=== PATIENT | male | born 1950 | race Caucasian/White ===

== ENCOUNTER 2016-03-17 10:40 | Inpatient (IN) | payer OTHER ==
[~2016-03-17] VITALS: Ht 172.7 cm; Wt 69.8 kg
[~2016-03-17 10:40] MED LIST: DILAUDID2 MG PO; LEXAPRO PO; METOPROLOL PO; PERCOCET 5/31 TABLET PO; PREVACID; TORADOL10 MG PO; ZANTAC150 MG PO; ZOFRAN4 MG PO
[2016-03-17 11:30] LABS: EOSINOPHIL (%) 0.2 % (0-5); HEMATOCRIT 43.6 % (38.0-50.0); IMMATURE GRANULOCYTE (%) 0.2 % (0.0-0.7); IMMATURE GRANULOCYTE COUNT 0.1 K/uL; MCH 31.3 PG (29.0-34.0); MCHC 35.3 G/DL (30.0-36.0); MCV 88.6 FL (86-99); MEAN PLAT.VOLUME 11.3 uM^3 (9.0-12.4); MONOCYTE (%) 4.9 % (3-12); MONOCYTE COUNT 0.3 K/uL (0-0.8); NEUTROPHIL (%) 78.4 % (45-76); NEUTROPHIL COUNT 4.6 K/uL (1.8-6.4); PLATELET COUNT 170 K/uL (156-360); RBC DIS.WIDTH-CV 12.9 % (11.8-14.6); RBC DIS.WIDTH-SD 40.9 % (39-53); RED BLOOD COUNT 4.92 M/uL (4.00-5.50); WHITE BLOOD COUNT 5.9 K/uL (4.1-10.2)
[2016-03-17 11:42] LABS: CHLORIDE 102 mEq/L (99-109); POTASSIUM 3.9 mEq/L (3.7-5.4); SODIUM 135 mEq/L (136-147)
[2016-03-17 11:44] LABS: GLUCOSE 147 mg/dL (70-99)
[2016-03-17 11:45] LABS: ANION GAP 10 MEQ/L (2-14)
[2016-03-17 11:46] LABS: TOTAL BILIRUBIN 0.5 mg/dL (0.0-1.0)
[2016-03-17 11:47] LABS: SERUM ETHYL ALCOHOL < 10 mg/dL
[2016-03-17 11:48] LABS: ALKALINE PHOSPHATASE 109 IU/L (3-129); GFR ESTIMATE (CALCULATED) > 59 mL/min/
[2016-03-17 11:49] LABS: UREA NITROGEN (BUN) 15 mg/dL (9-23)
[2016-03-17 12:49] LABS: COCAINE NEGATIVE (150 ng/mL); PHENCYCLIDINE NEGATIVE (25 ng/mL); THC CANNABINOIDS NEGATIVE (50 ng/mL)
[2016-03-17 12:50] LABS: AMPHETAMINE NEGATIVE (500 ng/mL); BARBITURATES NEGATIVE (200 ng/mL); BENZODIAZEPINES NEGATIVE (150 ng/mL); INTERNAL CONTROLS VALID? YES; METHADONE NEGATIVE (200 ng/mL); METHAMPHETAMINE NEGATIVE (500 ng/mL); OPIATES (MORPHINE) NEGATIVE (100 ng/mL); OXYCODONE NEGATIVE (100 ng/mL); PROPOXYPHENE NEGATIVE (300 ng/mL); TRICYCLIC ANTIDEPRESSANTS NEGATIVE (300 ng/mL)
[2016-03-17] MEDS ORDERED: ESCITALOPRAM OX10 MG PO (15:54)
[2016-03-17] MEDS ORDERED: AMLODIPINE BESYL5 MG PO (15:55)
[2016-03-17] MEDS ORDERED: B COMPLEX #11 EACH PO (15:56)
[2016-03-17] MEDS ORDERED: CYANOCOBALAM1000 MCG PO (15:57)
[2016-03-17] MEDS ORDERED: CALCIUM CITRAT250 MG PO (16:01)
[2016-03-17 16:16] VITALS: BP 151/84
[2016-03-17] MEDS ORDERED: OS-CAL 500+D T1 EAC1 PO (16:37)
[2016-03-18 07:34] VITALS: BP 123/78
[2016-03-18 15:48] VITALS: BP 120/67
[2016-03-19 09:08] VITALS: BP 154/85
[2016-03-19 15:43] VITALS: BP 136/74
[2016-03-20 07:49] VITALS: BP 127/68
[2016-03-20 15:34] VITALS: BP 125/79; BP 142/82
[2016-03-21 07:55] VITALS: BP 115/57
[2016-03-21 15:54] VITALS: BP 132/78
[2016-03-22 08:00] VITALS: BP 135/78
[2016-03-22 16:06] VITALS: BP 132/72
[2016-03-23 07:53] VITALS: BP 127/70
[2016-03-23 15:37] VITALS: BP 139/80
[2016-03-24 07:59] VITALS: BP 152/83
[2016-03-24 15:31] VITALS: BP 139/70
[2016-03-25 07:53] VITALS: BP 129/73
[2016-03-25] MEDS ORDERED: MIRTAZAPINE30 MG PO (10:30)
[2016-03-25] MEDS ORDERED: ESCITALOPRAM OX20 MG PO (10:30)
== END 2016-03-25 13:30 | disposition home or self-care (01) | DRG 885 ==
LOC: EME 10:40 → 1WEST 15:15 → EDOF 15:15 → 1WEST 15:15
PROVIDERS: Emergency Medicine
DX: F33.2 Major depressive disorder, recurrent severe without psychotic features (principal); I10 Essential (primary) hypertension; F41.9 Anxiety disorder, unspecified
CPT/HCPCS: 80053; 85025; 90839; 97150 GO; 97165 GO; 99281; 99285; G0480